=== PATIENT | female | born 1980 | race Caucasian/White ===

== ENCOUNTER 2023-04-19 18:43 | Emergency (ER) | payer BC, SELFPAY ==
[2023-04-19 18:53] VITALS: BP 190/120; PULSE 112; RESP 20; O2SAT 98
[2023-04-19 19:05] VITALS: O2SAT 98
--- NOTE | 2023-04-19 19:09 | XR_ITS ---
The [address] [address] Patient Name: MICHAEL LAUGHLIN MRN: [id number] date: 1980 Sex: F Assigned Patient Location: ER Current Patient Location: ER Accession/Order Number: [id number] Exam Date: 04/19/2023 19:20 Report Date: 04/19/2023 19:48 At the request of: HUI RODRIGUES Procedure: XR chest 1V EXAM: XR chest 1V HISTORY: Cough. COMPARISON: None. TECHNIQUE: 2 AP erect portable views of the chest performed. FINDINGS: The trachea is midline. The heart size is normal. The cardiomediastinal silhouette and hilar shadows are normal. The lung wahl are clear. There is no pneumothorax. There is no osseous abnormality. XR/XR chest 1V IMPRESSION: Unremarkable AP erect portable views of the chest. Electronically authenticated by: EVON PAVON Date: 04/19/2023 19:48
--- NOTE | 2023-04-19 19:10 | ED_ITS ---
Documented by User: ERUM Baldwin 04/19/23 20:01 HPI - URI/Sore Throat General Chief Complaint: Upper Respiratory Infection Stated Complaint: COVID + HOME TEST Time Seen by Provider: 04/19/23 18:55 Source: patient Limitations: no limitations History of Present Illness HPI Narrative: patient is a 42-year-old female presents to the emergency department for the evaluation of flulike illness for the last three days, she took a positive home Covid test today. She states she presents to the Emergency Room because she has history of lupus and has a bad headache, bad cough and does not feel well. She is drinking fluids without difficulty. She has a history of hypertension and states that her blood pressure is typically high when she is evaluated at a doctor's office or hospital. Manual blood pressure was 190/120. She does not complain of chest pain but states she is mildly short of breath when she coughs. No hemoptysis. No concern for . She is not currently on steroids for her lupus. Related Data Home Medications Medication Instructions Recorded Confirmed metoprolol succinate 25 mg 25 mg PO DAILY 04/19/23 04/19/23 tablet,extended release 24 hr Previous Rx's Medication Instructions Recorded albuterol sulfate 90 mcg/actuation 2 inh inhalation Q4H PRN shortness 04/19/23 aerosol inhaler of breath or wheezing #8.5 grams dexamethasone 4 mg tablet 4 mg PO BID 5 days #10 tabs 04/19/23 ondansetron 4 mg disintegrating 4 mg PO Q6H PRN nausea and 04/19/23 tablet vomiting #12 tabs Allergies Allergy/AdvReac Type Severity Reaction Status Date / Time Penicillins Allergy Severe Rash Verified 04/19/23 18:52 Review of Systems ROS Constitutional Reports: chills; Denies: fever Eyes Denies: change in vision Ears, nose, mouth, and throat Reports: throat pain and nasal congestion; Denies: neck pain Cardiovascular Denies: chest pain Respiratory Reports: shortness of breath and cough Gastrointestinal Denies: nausea or vomiting Musculoskeletal Denies: back pain Integumentary/Breast Denies: rash Neurological Reports: headache Psychiatric Reports: anxiety Allergic/Immunologic Denies: hives PFSH PFSH Social History Smoking status: Never smoker Exam Narrative Exam Narrative: Gen.: Awake, alert, in no distress Head: Normocephalic, atraumatic ENT: Moist mucous membranes, no significant pharyngeal erythema or tonsillar edema. Airway widely open and patent. Clear speech. Respiratory: No respiratory distress, lungs clear bilaterally; no wheezing or rhonchi Cardio: Regular rate and rhythm Extremities: Moves extremities equally, no pedal edema Psych: Normal mood and affect Neuro: No focal neuro deficit Skin: Warm, dry, intact Constitutional Vital Signs, click to edit/add: Last Vital Signs Pulse 112 H 04/19/23 18:53 Resp 20 04/19/23 18:53 BP 142/98 H 04/19/23 19:52 Pulse Ox 98 04/19/23 19:27 O2 Del Method Room Air 04/19/23 19:27 Course Vital Signs Vital signs: Vital Signs Pulse Rate 112 H 04/19/23 18:53 Respiratory Rate 20 04/19/23 18:53 Blood Pressure 190/120 H 04/19/23 18:53 Pulse Oximetry 98 04/19/23 18:53 Pulse Rate 112 H 04/19/23 18:53 Respiratory Rate 20 04/19/23 18:53 Blood Pressure 142/98 H 04/19/23 19:52 Pulse Oximetry 98 04/19/23 19:27 Oxygen Delivery Method Room Air 04/19/23 19:27 MDM - URI/Sore Throat MDM Narrative Medical decision making narrative: blood pressure was rechecked manually at 142/98. Patient with no complete chest pain and maintains normal oxygen saturation. Chest x-ray with no evidence of acute cardiopulmonary changes. Patient's symptoms are consistent with Coban infection and she is given for prescription and for home to help with symptoms. She is started on Decadron, Zofran, albuterol inhaler. Follow-up with PCP and return to the Emergency Room if symptoms change or worsen. Medical Records Attestation: I reviewed the patient's medical records. Imaging Data Chest x-ray: Attestation: I have reviewed the pertinent imaging results. Radiologist's impression: Procedure: XR chest 1V EXAM: XR chest 1V HISTORY: Cough. COMPARISON: None. TECHNIQUE: 2 AP erect portable views of the chest performed. FINDINGS: The trachea is midline. The heart size is normal. The cardiomediastinal silhouette and hilar shadows are normal. The lung wahl are clear. There is no pneumothorax. There is no osseous abnormality. IMPRESSION: Unremarkable AP erect portable views of the chest. Electronically authenticated by: EVON PAVON Date: 04/19/2023 19:48 Discharge Plan Discharge Chief Complaint: Upper Respiratory Infection Clinical Impression: COVID-19 Patient Disposition: Home, Self-Care Time of Disposition Decision: 20:00 Condition: Good Prescriptions / Home Meds: New albuterol sulfate 90 mcg/actuation HFA aerosol inhaler 2 inh inhalation Q4H PRN (Reason: shortness of breath or wheezing) Qty: 8.5 0RF dexamethasone 4 mg tablet 4 mg PO BID 5 Days Qty: 10 0RF ondansetron 4 mg tablet,disintegrating 4 mg PO Q6H PRN (Reason: nausea and vomiting) Qty: 12 0RF No Action metoprolol succinate 25 mg tablet extended release 24 hr 25 mg PO DAILY Instructions: COVID-19 (Coronavirus Disease 2019) (ED), How to Recover from COVID-19 at Home (ED) Stand Alone Forms: Portal Instructions Referrals: Gabi Bobby MD [Primary Care Provider] - 1 week Discharge Date/Time: 04/19/23 20:17 Documented by User: Salina Dove MD 04/19/23 23:58 HPI - URI/Sore Throat General Chief Complaint: Upper Respiratory Infection Stated Complaint: COVID + HOME TEST Time Seen by Provider: 04/19/23 18:55 Related Data Home Medications Medication Instructions Recorded Confirmed metoprolol succinate 25 mg 25 mg PO DAILY 04/19/23 04/19/23 tablet,extended release 24 hr Previous Rx's Medication Instructions Recorded albuterol sulfate 90 mcg/actuation 2 inh inhalation Q4H PRN shortness 04/19/23 aerosol inhaler of breath or wheezing #8.5 grams dexamethasone 4 mg tablet 4 mg PO BID 5 days #10 tabs 04/19/23 ondansetron 4 mg disintegrating 4 mg PO Q6H PRN nausea and 04/19/23 tablet vomiting #12 tabs Allergies Allergy/AdvReac Type Severity Reaction Status Date / Time Penicillins Allergy Severe Rash Verified 04/19/23 18:52 PFSH PFSH Social History Smoking status: Never smoker Exam Constitutional Vital Signs, click to edit/add: Last Vital Signs Pulse 112 H 04/19/23 18:53 Resp 20 04/19/23 18:53 BP 142/98 H 04/19/23 19:52 Pulse Ox 98 04/19/23 19:27 O2 Del Method Room Air 04/19/23 19:27 Course Vital Signs Vital signs: Vital Signs Pulse Rate 112 H 04/19/23 18:53 Respiratory Rate 20 04/19/23 18:53 Blood Pressure 190/120 H 04/19/23 18:53 Pulse Oximetry 98 04/19/23 18:53 Pulse Rate 112 H 04/19/23 18:53 Respiratory Rate 20 04/19/23 18:53 Blood Pressure 142/98 H 04/19/23 19:52 Pulse Oximetry 98 04/19/23 19:27 Oxygen Delivery Method Room Air 04/19/23 19:27 MDM - URI/Sore Throat MDM Narrative Medical decision making narrative: blood pressure was rechecked manually at 142/98. Patient with no complete chest pain and maintains normal oxygen saturation. Chest x-ray with no evidence of acute cardiopulmonary changes. Patient's symptoms are consistent with Coban infection and she is given for prescription and for home to help with symptoms. She is started on Decadron, Zofran, albuterol inhaler. Follow-up with PCP and return to the Emergency Room if symptoms change or worsen. Attending physician attestation I have reviewed the mid-level documentation, agree with the documentation, medical decision making and treatment plan as outlined by the mid-level provider. Discharge Plan Discharge Chief Complaint: Upper Respiratory Infection Clinical Impression: COVID-19 Patient Disposition: Home, Self-Care Time of Disposition Decision: 20:00 Condition: Good Prescriptions / Home Meds: New albuterol sulfate 90 mcg/actuation HFA aerosol inhaler 2 inh inhalation Q4H PRN (Reason: shortness of breath or wheezing) Qty: 8.5 0RF dexamethasone 4 mg tablet 4 mg PO BID 5 Days Qty: 10 0RF ondansetron 4 mg tablet,disintegrating 4 mg PO Q6H PRN (Reason: nausea and vomiting) Qty: 12 0RF No Action metoprolol succinate 25 mg tablet extended release 24 hr 25 mg PO DAILY Instructions: COVID-19 (Coronavirus Disease 2019) (ED), How to Recover from [place] VID-19 at Home (ED) Stand Alone Forms: Portal Instructions Referrals: Gabi Bobby MD [Primary Care Provider] - 1 week Discharge Date/Time: 04/19/23 20:17
[2023-04-19 19:27] VITALS: O2SAT 98
[2023-04-19] MEDS: DEXAMETHASONE SODIUM PHOSPHATE 10 MG/ML VIAL PO (19:27)
[2023-04-19 19:52] VITALS: BP 142/98
== END 2023-04-19 20:17 | disposition home or self-care (01) ==
PROVIDERS: Emergency Provider Emergency Medicine; PCP Family Medicine
DX: U07.1 COVID-19 (principal); Z79.899 Other long term (current) drug therapy
CPT/HCPCS: 71045; 99283; J1100

== ENCOUNTER 2023-08-05 12:30 | Outpatient (OUT) | payer BC, SELFPAY ==
[2023-08-05 12:52] LABS: Basophils Absolute Auto 0.1 10^3/uL (0.0-0.1); Basophils Percent Auto 1.2 % (0.2-2.0); Eosinophils Absolute Auto 0.2 10^3/uL (0.0-0.7); Hematocrit 46.1 % (36.0-48.0); Hemoglobin 15.5 g/dL (12.0-16.0); Immature Granulocytes Abs Auto 0.03 10^3/uL (0.00-0.03); Immature Granulocytes Pct Auto 0.4 % (0.0-0.5); Lymphocytes Absolute Auto 1.7 10^3/uL (1.2-3.8); Mean Corpuscular HGB Conc 33.6 g/dL (29.9-35.2); Mean Corpuscular Hemoglobin 31.8 pg (26.7-34.0); Mean Corpuscular Volume 94.5 fL (81.0-99.0); Mean Platelet Volume 9.9 fL (9.5-13.5); Monocytes Absolute Auto 0.8 10^3/uL (0.3-0.8); Monocytes Percent Auto 11.1 % (1.7-12.0); Neutrophils Absolute Auto 4.6 10^3/uL (1.4-6.5); Neutrophils Percent Auto 62.3 % (43.0-75.0); Platelet Count 310 10^3/uL (150-450); Red Blood Count 4.88 10^6/uL (4.20-5.40); Red Cell Distribution Width 12.3 % (11.0-15.0); White Blood Count 7.4 10^3/uL (4.0-11.0)
[2023-08-05 13:33] LABS: Anion Gap 11.1; BUN Creatinine Ratio 10.1; Calcium 8.8 mg/dL (8.5-10.1); Carbon Dioxide 30.3 mmol/L (21.0-32.0); Chloride 100 mmol/L (98-107); Estimated GFR (African America >60 (>=60); Estimated GFR (Non-African Ame 55 (>=60); Glucose 90 mg/dL (74-106); Potassium 3.4 mmol/L (3.5-5.1); Sodium 138 mmol/L (136-145); Thyroid Stimulating Hormone 5.615 uIU/mL (0.358-3.740)
[2023-08-05 14:13] LABS: Free T4 0.92 ng/dL (0.76-1.46)
== END 2023-08-05 12:31 | disposition home or self-care (01) ==
PROVIDERS: PCP Family Medicine; Visit Provider Family Medicine
DX: R00.0 Tachycardia, unspecified (principal); I10 Essential (primary) hypertension; E03.9 Hypothyroidism, unspecified
CPT/HCPCS: 36415; 80048; 84439; 84443; 85025

== ENCOUNTER 2024-01-27 12:37 | Outpatient (OUT) | payer SELFPAY ==
[2024-01-27 13:03] LABS: Basophils Absolute Auto 0.1 10^3/uL (0.0-0.1); Basophils Percent Auto 1.2 % (0.2-2.0); Eosinophils Absolute Auto 0.2 10^3/uL (0.0-0.7); Eosinophils Percent Auto 2.6 % (0.9-7.0); Hematocrit 43.6 % (36.0-48.0); Hemoglobin 14.7 g/dL (12.0-16.0); Immature Granulocytes Abs Auto 0.03 10^3/uL (0.00-0.03); Immature Granulocytes Pct Auto 0.4 % (0.0-0.5); Lymphocytes Absolute Auto 1.7 10^3/uL (1.2-3.8); Lymphocytes Percent Auto 22.5 % (20.5-60.0); Mean Corpuscular HGB Conc 33.7 g/dL (29.9-35.2); Mean Corpuscular Hemoglobin 30.9 pg (26.7-34.0); Mean Corpuscular Volume 91.8 fL (81.0-99.0); Mean Platelet Volume 9.8 fL (9.5-13.5); Monocytes Absolute Auto 0.6 10^3/uL (0.3-0.8); Monocytes Percent Auto 7.8 % (1.7-12.0); Neutrophils Percent Auto 65.5 % (43.0-75.0); Platelet Count 321 10^3/uL (150-450); Red Blood Count 4.75 10^6/uL (4.20-5.40); Red Cell Distribution Width 12.5 % (11.0-15.0); White Blood Count 7.7 10^3/uL (4.0-11.0)
[2024-01-27 13:58] LABS: Free T4 0.71 ng/dL (0.76-1.46)
[2024-01-27 14:02] LABS: Anion Gap 13.6; BUN Creatinine Ratio 7.9; Calcium 8.6 mg/dL (8.5-10.1); Chloride 102 mmol/L (98-107); Estimated GFR (African America >60 (>=60); Estimated GFR (Non-African Ame >60 (>=60); Glucose 144 mg/dL (74-106); Potassium 3.6 mmol/L (3.5-5.1); Sodium 138 mmol/L (136-145); Thyroid Stimulating Hormone 7.466 uIU/mL (0.358-3.740)
== END 2024-01-27 12:38 | disposition home or self-care (01) ==
LOC: LAB 12:39
PROVIDERS: PCP Family Medicine; Visit Provider Family Medicine
DX: R00.0 Tachycardia, unspecified (principal); I10 Essential (primary) hypertension; E03.9 Hypothyroidism, unspecified
CPT/HCPCS: 36415; 80048; 84439; 84443; 85025

== ENCOUNTER 2024-12-26 10:33 | Outpatient (OUT) | payer BC, SELFPAY ==
[2024-12-26 11:34] LABS: Free T4 0.76 ng/dL (0.76-1.46)
[2024-12-26 11:37] LABS: Anion Gap 11.3; Calcium 8.5 mg/dL (8.5-10.1); Chloride 103 mmol/L (98-107); Estimated GFR (African America >60 (>=60 mL/min/1.73m^2); Estimated GFR (Non-African Ame >60 (>=60 mL/min/1.73m^2); Glucose 98 mg/dL (74-106); Potassium 4.3 mmol/L (3.5-5.1); Sodium 138 mmol/L (136-145); Thyroid Stimulating Hormone 9.741 uIU/mL (0.358-3.740)
== END 2024-12-26 10:34 | disposition home or self-care (01) ==
LOC: LAB 10:36
PROVIDERS: PCP Family Medicine; Visit Provider Family Medicine
DX: E03.9 Hypothyroidism, unspecified (principal); I10 Essential (primary) hypertension
CPT/HCPCS: 36415; 80048; 84439; 84443

== ENCOUNTER 2025-07-08 11:25 | Outpatient (OUT) | payer BC, SELFPAY ==
--- OUTSIDE RECORDS SUMMARY | 2025-06-26 06:52 | XMS_ITS | Continuity of Care Document ---
Author Organization [facility] Address [address] [place] [address] Phone Care Team Providers Care Fluxer Name Role Phone Gabi Bobby MD Primary Care Provider Gabi Bobby MD Attending Provider [phone] Care Teams Patient Care Team Team Status: Active Member Role/Relationship Status Dates Gabi Bobby MD Primary Care Provider Active Patient Care Team Team Status: Inactive Member Role/Relationship Status Dates Gabi Bobby MD Primary Care Provider Active Start: June 26, 2025 End: June 26, 2025Gabi Bobby MDAttending ProviderActiveStart: June 26, 2025 End: June 26, 2025 Chief Complaint and Reason for Visit Chief Complaint Admit Date discuss multiple concerns + refill meds June 26, 2025 11:22am Reason for Visit Admit Date Acquired hypothyroidism June 26 11:22am Allergies, Adverse Reactions, Alerts Allergen Type Severity Reaction Last Updated Verified Status penicillin G Allergy Unknown Hives June 26, 2025 11:25am Yes Active Penicillins Allergy Unknown Hives June 26, 2025 11:25am Y es Active venlafaxine Allergy Unknown Hives June 26, 2025 11:25am Y es Active Social History Smoking Status Status Start Date End Date Date of Observa tion Never smoked tobacco (finding) December 20, 2024 11:13am Observation Status Observation Response Date of Response Legal Sex Female (finding) [facility] 1979 Family History Relationship Condition Age at Onset Recorded Date/T deyanira father Unknown Problems Active Problems Problem Diagnosis/Recorded Date Onset Date Stat us Colon cancer screening December 20, 2024 10:43am Unknown Active Screening mammogram for breast cancer December 20, 2024 10 :41am Unknown Active Acquired hypothyroidism December 26, 2023 11:26am Unknown Active Adult ADHD November 02, 2023 7:38am Unknown Acti ve Wellness examination February 13, 2024 1:14pm Unknown Active Headache November 16, 2023 7:51am Unknown Acti ve Tachycardia December 28, 2023 10:19am Unknown Active Essential (primary) hypertension December 26, 2023 11:26am Unknown Active Medications Medication Status Dose Units Route Directions Qty Days Refills S tart Date Stop Date End Date Reason(s) Instructions Adherence Butalbital-Acetaminophen 50-325 mg tablet Discontinued 1 TAB PO Twice daily as needed for pain 30 30 0 November 16, 2023 7:50am December 22, 2023 11:59amHeadache Headache, unspecifiedDextroamphetamine-Amphetamine (Adderall Xr) 30 mg capsule,extended release 01zoJdkrwswhippt90TEPCDlxks83331Koekv 2023May 2023 7:40amAttention deficit disorder of adult with hyperactivity Attention-deficit hyperactivity disorder, unspecified typeButalbital- Acetaminophen 50-325 mg utxteiOetqxyakvphy3LGUHNExoxf daily as needed for pain30 300May 2023 11:59amJune 2023 7:59amHeadache Headache, unspecifiedDextroamphetamine-Amphetamine (Adderall Xr) 30 mg capsule,extended release 31lcWcjilhdrsgty25QJASOgfll17326Aic 2023June 2023 8:09amAttention deficit disorder of adult with hyperactivity Attention-deficit hyperactivity disorder, unspecified typeDextroamphetamine- Amphetamine (Adderall Xr) 30 mg capsule,extended release 54uqSpjcdmgdqjdx71CJNO Nzyzv222Qqtm 2023June 2023 10:32amAttention deficit disorder of adult with hyperactivity Attention-deficit hyperactivity disorder, unspecified typeButalbital- Acetaminophen 50-325 mg ezdcbbOuibqigxidao0AQDXZHtbyp daily as needed for pain30 300June 2023 7:59amJuly 2023 7:27amHeadache Headache, unspecifiedDextroamphetamine-Amphetamine (Adderall Xr) 30 mg capsule,extended release 87jkCasqimwjazyt46LRSRFdbxd32605Hsgd ugu2023 8:51amAttention deficit disorder of adult with hyperactivity Attention-deficit hyperactivity disorder, unspecified typeButalbital- Acetaminophen 50-325 mg qctjfsLonjaiuozkol8AJHTGAjgsz daily as needed for pain30 300July 2023 7:27amAugust 2023 6:55amHeadache Headache, unspecifiedDextroamphetamine-Amphetamine (Adderall Xr) 30 mg capsule,extended release 35ygWlaszpawixls90XOMTMexqc19875Uymjky 2023April 27, 2024 7:22amAttention deficit disorder of adult with hyperactivity Attention-deficit hyperactivity disorder, unspecified typeLevothyroxine 88 mcg ggfcfbGtnfcpsevxcq15SJGOHIlctp145Kvjxvo 2023 7:31amDecember 2023 9:36amButalbital-Acetaminophen 50-325 mg rsmiwqYkajantxmvvk9LRKWAQvryx daily as needed for hdhl99196Ldeaia 2023 6:55amSeptember 2023 7:23amHeadache Headache, unspecifiedDextroamphetamine-Amphetamine (Adderall Xr) 30 mg capsule,extended release 24aiHrvbaarzvuye89WCUQEyarc32754Fsasalduh 2023May 30, 2024 9:43amAttention deficit disorder of adult with hyperactivity Attention-deficit hyperactivity disorder, unspecified typeButalbital- Acetaminophen 50-325 mg fpmbtaSbkjsnujccwr4GUKPHQygrl daily as needed for pain30 300September 2023 7:23amOctober 2023 7:11pmHeadache Headache, unspecifiedDextroamphetamine-Amphetamine (Adderall Xr) 30 mg capsule,extended release 18xtWeuiajosbuyl63CRYJHqzdv96859Eszysgt 2023June 28, 2024 1:13pmAttention deficit disorder of adult with hyperactivity Attention-deficit hyperactivity disorder, unspecified typeSumatriptan Succinate 50 mg iiydsaNvbjmdruwaae5KF.CLCJXRB76Mxrmall 2023 11:00pmJanuary 2024 1:09pmtake 1 tab at onset of headache; if no relief may repeat 1 tab after at least 2 hrs; max = 4 tabs/24 hr PODuloxetine 30 mg capsule,delayed release(DR/EC)Qwnyrkucitkr43SAWUTbtrd907Odcvswb 2023 3:15pmMay 2024 8:14amDextroamphetamine-Amphetamine (Adderall Xr) 30 mg capsule,extended release 33pnKsiuzzplukkd79VDZPKqlkn41205Dvvxkvvu 7th, 2024November 2023 1:14pm Attention deficit disorder of adult with hyperactivity Attention-deficit hyperactivity disorder, unspecified typeDextroamphetamine- Amphetamine (Adderall Xr) 30 mg capsule,extended release 78esYqwpnkttosqf47AINN Nfpfh01389Cidqueag eceer 2023 8:35amAttention deficit disorder of adult with hyperactivity Attention-deficit hyperactivity disorder, unspecified typeDextroamphetamine- Amphetamine (Adderall Xr) 30 mg capsule,extended release 76utSgfjonywjnse23WMVM Eeqth56358Mrksyxxf 2023January 2024 1:10pmAttention deficit disorder of adult with hyperactivity Attention-deficit hyperactivity disorder, unspecified typeLevothyroxine 88 mcg lrqlpkBbcnuducopqk58PXDNGQhxau776Wmxvqzmx 2023 9:36amMay 2024 8:14am Sumatriptan Succinate 50 mg oeexupCetphbfptacj3VY.SNSLGMS07Jiijgyy 2024 1:09pmMay 2024 8:14amtake 1 tab at onset of headache; if no relief may repeat 1 tab after at least 2 hrs; max = 4 tabs/24 hr PODextroamphetamine- Amphetamine (Adderall Xr) 30 mg capsule,extended release 17byTmkcpnyreqog95LGPU Edlur97249Huaicjs 2024 8:14amAttention deficit disorder of adult with hyperactivity Attention-deficit hyperactivity disorder, unspecified typeAmlodipine 5 mg tablet Fdzxskrheskb9EVWJKjkit258Qndeypv 2024 3:36pmFebruary 2024 8:30am FreeTextSig: take 1 tablet by mouth once daily; Note: Source Status: Start; Refills: 1; Qty: 30 Tablet; Provider: Kanu Ashley ( )Amlodipine 5 mg zxlmwfDgaedxnholeq7SAVNJimtd467Fjzhapve 2024 8:30amMay 2024 8:14amFreeTextSig: take 1 tablet by mouth once daily; Note: Source Status: Start; Refills: 1; Qty: 30 Tablet; Provider: Kanu Ashley ( ) Levothyroxine 100 mcg dmxmqqIylquq323BFGWOJetej023Rhu 2024 11:16amComplies with drug therapyLevothyroxine 75 mcg craebzYeshoolrcogo68LTELMNmcdm758Xkwb 2023 10:25amAugust 2023 7:32amFreeTextSi tablet in the morning on an empty stomach Orally Once a day; Note: Source Status: Start; Refills: 1; Provider: Kanu Ashley EDuloxetine 30 mg capsule,delayed release(DR/EC) Rsacotpursyc51KFCIGiueh350Ypyd 2023 10:26amOctober 2023 3:15pm FreeTextSig: take 1 capsule by mouth once daily; Note: Source Status: Start; Refills: 0; Qty: 30 Capsule; Provider: Kanu Ashley ( ) Dextroamphetamine-Amphetamine (Adderall Xr) 30 mg capsule,extended release 24hr Ffjlfjruztnk74XPRDZtdvn71366Izqz 2023July 2023 7:26amAttention deficit disorder of adult with hyperactivity Attention-deficit hyperactivity disorder, unspecified typeDuloxetine 30 mg capsule,delayed release(DR/EC)Bocbhr91IAHECptkt321Dyvwwgyn 2024 11:45am Complies with drug therapyDextroamphetamine-Amphetamine (Adderall Xr) 30 mg capsule,extended release 58qcBmwcmyjicerf57BRFPAffli4Oznlv 2023 11:00pm November 02, 2023 7:38amDextroamphetamine-Amphetamine (Adderall Xr) 30 mg capsule,extended release 21ljLdkpvlzzuplg67NHXLGuwal37419Zwuvn pril 2023 8:58amAttention deficit disorder of adult with hyperactivity Attention-deficit hyperactivity disorder, unspecified typeButalbital- Acetaminophen 50-325 mg incliyDpyvxeywbnga4QUWYJPosnt 6 hours as neededMarch 2023 11:00pmMarch 2023 7:52amDuloxetine 20 mg capsule,delayed release(DR/EC)Btkdvelaixym42TZRYYjxxuKwp 2023 11:00pmJune 2023 10:26amFreeTextSig: take 1 capsule by mouth once daily; Note: Source Status: Start; Refills: 0; Qty: 30 Capsule; Provider: Kanu Ashley ( ) Amlodipine 5 mg qeprqoKyepmgwacacz9MRXIIBryqzHqb 2023 11:00pmJanuary 2024 3:37pmFreeTextSig: take 1 tablet by mouth once daily; Note: Source Status: Start; Refills: 1; Qty: 30 Tablet; Provider: Kanu Ashley ( ) Levothyroxine 50 mcg pexpzsMfxhupbfaffh3ELEAIJysosPzt 2023 11:00pmJune 2023 10:25amFreeTextSi tablet in the morning on an empty stomach Orally Once a day; Note: Source Status: Start; Refills: 1; Provider: Kanu Ashley EAmlodipine 5 mg abyphzBrzhrrszcxbf4QZQRJweypEmwez 2024 11:00pmMay 2024 10:37amDextroamphetamine-Amphetamine 30 mg capsule,extended release 48sqNvpwapplvhck67FGFRFgzgj6Fkife 2024 11:00pmMay 2024 10:38am Duloxetine 30 mg capsule,delayed release(DR/EC)Ydmessiswqsb02EVSWAqonmKijxu 2024 11:00pmMay 2024 10:39amLevothyroxine 88 mcg zjkjavOmmzqghjxcmh71 MCGPODailyApril 2024 11:00pmMay 2024 11:16amSumatriptan Succinate 50 mg kndyjoMluuzoryilpv15DOKUGQLXX 2-4 HOURS as neededApril 2024 11:00pmMa2024 10:38amdo not exceed 4 doses per 24 hrsAmlodipine 5 mg tablet Znyrlmruttfe4GQPDZakne019Kud 2024 10:35amNovember 2024 11:42am Metoprolol Succinate 25 mg tablet extended release 24 ssLytecnmfojqq68OBJPXbynf 300April 2024 11:00pmJune 26, 2025 11:42am Vital Signs Vital Reading Result Reference Range Collection Date/Time Height 65 [in_i] June 26, 2025 11:20hkNbnzfq83.86 kgJune 26, 2025 11:22amHeart Rjit665 /yzh28-484ZqzsvslvJune 26, 2025 11:32amBP Cdryfqqj208 mm[Hg]100-140June 26, 2025 11:32amBP Ojxsktkhu367 mm[Hg]60-100June 26, 2025 11:32amBMI (Body Mass Index)23.8 kg/g4FwmjcqvmJune 26, 2025 11:22am Advance Directives Advance Directive Response Recorded Date/ Time Advance Directives No January 25 10:08am Insurance Providers Guarantor Bri Perkins Address [address] [place] [phone] Info.Home Phone: C Coverage Status Update:2024 Payer Group Member ID Coverage Type Subscriber Relationship to Subscriber Effective Date Expiration Date Parmjit SILVA [id number] Smith , M Id: [id number] [address] [place] [id number] Home Phone: C Email: [email or web address] [employer] [id number] Smith , M Id: [id number] [address] [place] [phone] Home Phone: C Email: [email or web address] Encounter Location(s) Arrival/Admit Date Discharge/Departure Date Discharge/Departure Disposition Provider(s) Departed Physician/ Provider Office Visit -[facility] June 26, 2025 11:22am June 26, 2025 11:50am Discharged to home care or self care (routine discharge) Gabi Bobby MD Recent Diagnosis Onset Date Admit Date Acquired hypothyroidism Unknown June 26, 2025 11:22am Assessments Diagnosis Onset Date Resolution Status Admit Date Acquired hypothyroidism acuteJune 26, 2025 11:22am Plan of Treatment Future Tests Future scheduled test information is unavailable Pending Tests Pending diagnostic test information is unavailable Future Visits Future appointment information is unavailable Future Procedures Procedure Name Ordered Date Scheduled Date Free T4 (Free Thyroxine) June 26, 2025 11:4 3am Thyroid Stim Hormone w/RflxJunember 2024 11:43am Future Medications Future medication information is unavailable Patient Instructions Patient instructions are unavailable
--- OUTSIDE RECORDS SUMMARY | 2025-07-08 11:35 | XMS_ITS | CCD ---
Author Organization 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 Name Role Phone GABI BOBBY Unavailable Unavailable GABI BOBBY Unavailable Unavailable GABI BOBBY Unavailable Unavailable GABI BOBBY Unavailable Unavailable HAY, GEMA Unavailable Unavailable HAY, GEMA Unavailable Unavailable RAJESH XAVIER Unavailable Unavailable HUI RODRIGUES Unavailable Unavailable Gabi Bobby Unavailable Gabi Bobby MD Primary Care Provider [phone] Gabi Bobby MD Attending Provider Allergies Allergy ClassificationReported Allergen(s)Allergy TypeDate of OnsetReaction(s) Facility (4 sources)PenicillinsDrug allergy (disorder)[phone] (9 sources)Penicillin GDrug [phone] State [facility] System (9 sources)venlafaxineDrug Singmqj65-44-5743HgiimyzOhio State Health System (6 sources)venlafaxineDrug Ybcmywb91-47-5182AfwoahlVmgzg [place] [employer] [place] Other (6 sources)Substance with penicillin structure and antibacterial mechanism of action (substance)Drug allergyLandmark Medical Center [employer] [place] Other Medications Current Medications MedicationDrug Class(es)DatesSig (Normalized)Sig (Original)acetaminophen 325 mg / butalbital 50 mg / caffeine 40 mg oral capsule (6 sources)Barbiturate, Central Nervous System Stimulant, Methylxanthinetake 1 capsule by mouth every four aghljRhutccbygc-NXFO-Bcuqzect 50-325-40 MG 1 capsule as needed Orally every 4 hrs for 30 days Nyhejzcshllrwovu-jhmprdddrwalh-vsrt 50-325-40mg (1 source)Start: 87-91-4775kpkj 1 tablet by mouth every six hours as needed dkidnhrxal-kilnzefoyquak-suml 50-325-40mg bbjcotbvoq-tsdlullftypws-iqou 50-325-40mg, 1 (one) Tabletevery six hours, as needed # 30, 07/27/2022, Ref. x2. Active oral every six hours, as needed for 0 *Reorder from [facility] for eRx and Interaction Alerts* Jul, ActiveDULoxetine 30 mg delayed release oral capsule (17 sources)Serotonin and Norepinephrine Reuptake InhibitorStart: 77-81-0599oicm 1 capsule by mouth once dailyDuloxetine 30 mg capsule,delayed release(DR/EC) Active 30 MG PO Daily 90 0 June 26, 2025 11:45am Complies with drug therapy Start: 02-01-2024 End: 80-39-7118ilxt 1 capsule by mouth once dailyDuloxetine 30 mg capsule,delayed release(DR/EC) Discontinued 30 MG PO Daily December 19, 2024 11:00pm December 20, 2024 10:39amStart: 12-26-2023 End: 05-36-3160ljst 1 capsule by mouth once dailyDuloxetine 20 mg capsule,delayed release(DR/EC) Discontinued 20 MG PO Daily December 25, 2023 11:00pm February 01, 2024 10:26am FreeTextSig: take 1 capsule by mouth once daily; Note: Source Status: Start; Refills: 0; Qty: 30 Capsule; Provider: Kanu Ashley ( )take 1 capsule by mouth once dailyDULoxetine HCl 20 MG take 1 capsule by mouth once daily for 30 Activelevothyroxine sodium 0.1 mg oral tablet (18 sources)l-ThyroxineStart: 42-67-3137qnfc 1 tablet by mouth once daily Levothyroxine 100 mcg tablet Active 100 MCG PO Daily 90 0 December 26, 2024 11:16am Complies with drug therapyStart: 03-30-2024 End: 17-05-2007zuhr 1 tablet by mouth once dailyLevothyroxine 88 mcg tablet Discontinued 88 MCG PO Daily December 19, 2024 11:00pm December 26, 2024 11:16am Start: 02-01-2024 End: 79-83-5863sfyz 1 tablet by mouth once daily in the morningLevothyroxine 75 mcg tablet Discontinued 75 MCG PO Daily 90 0 February 01, 2024 10:25am March 30, 2024 7:32am FreeTextSi tablet in the morning on an empty stomach Orally Once a day; Note: Source Status: Start; Refills: 1; Provider: Kanu Ashley EStart: 12-26-2023 End: 88-45-4193uqcp 1 tablet by mouth once daily in the morningLevothyroxine 50 mcg tablet Discontinued 1 TAB PO Daily December 25, 2023 11:00pm February 01, 2024 10:25am FreeTextSi tablet in the morning on an empty stomach Orally Once a day; Note: Source Status: Start; Refills: 1; Provider: Kanu Valentine 1 tablet by mouth once daily in the morningLevothyroxine Sodium 50 MCG 1 tablet in the morning on an empty stomach Orally Once a day for 30 days Active Completed/Discontinued Medications MedicationDrug Class(es)DatesSig (Normalized)Sig (Original)acetaminophen 325 mg / butalbital 50 mg oral tablet (20 sources)BarbiturateStart: 11-16-2023 End: 39-10-7592jhmk 1 tablet by mouth twice daily as needed for painButalbital- Acetaminophen 50-325 mg tablet Discontinued 1 TAB PO Twice daily as needed for pain 30 30 0 May 11, 2024 7:23am June 15, 2024 7:11pm Headache Headache, unspecifiedStart: 11-15-2023 End: 57-02-5401ccpx 1 tablet by mouth every six hours as neededButalbital- Acetaminophen 50-325 mg tablet Discontinued 1 TAB PO Every 6 hours as needed October 11:00pm November 16, 2023 7:52amButalbital-Acetaminophen 50-325 MG take 1 tablet by mouth every 6 hours if needed for 7 days for 7 Active amLODIPine 5 mg oral tablet (17 sources)Dihydropyridine Calcium Channel BlockerStart: 12-26-2023 End: 10-70-0521bfmb 1 tablet by mouth once dailyAmlodipine 5 mg tablet Discontinued 5 MG PO Daily 30 3 December 20, 2024 10:35am June 26, 2025 11:42am Start: 81-33-6453insk 1 tablet by mouth every twenty-four hoursamLODIPine Besylate 5 MG 1 tablet Orally Once a day for 30 day(s) Jul, Uyhlta48 hr amphetamine aspartate 7.5 mg / amphetamine sulfate 7.5 mg / dextroamphetamine saccharate 7.5 mg / dextroamphetamine sulfate 7.5 mg extended release oral capsule (20 sources)Central Nervous System StimulantStart: 06-30-2024 End: 32-34-2036xqlc 1 capsule by mouth once dailyDextroamphetamine-Amphetamine 30 mg capsule,extended release 24hr Discontinued 30 MG PO Daily 0 December 19, 2024 11:00pm December 20, 2024 10:38amStart: 06-28-2024 End: 99-89-9226ktiv 1 capsule by mouth once daily, then take 1 capsule by mouth every twenty-four hoursDextroamphetamine-Amphetamine (Adderall Xr) 30 mg capsule,extended release 24hr Discontinued 30 MG PO Daily 30 30 0 June 28, 2024 June 28, 2024 1:14pm Attention deficit disorder of adult with hyperactivity Attention-deficit hyperactivity disorder, unspecified typeStart: 06-28-2024 End: 11-54-3163cuqw 1 capsule by mouth once daily, then take 1 capsule by mouth every twenty-four hoursDextroamphetamine-Amphetamine (Adderall Xr) 30 mg capsule,extended release 24hr Discontinued 30 MG PO Daily 30 30 June 28, 2023June 28, 2024 2:14pmStart: 11-01-2023 End: 80-33-6861gvvm 1 capsule by mouth once daily, then take 1 capsule by mouth every twenty-four hoursDextroamphetamine-Amphetamine (Adderall Xr) 30 mg capsule,extended release 24hr Discontinued 30 MG PO Daily 30 30 0 November 02, 2023 November 30, 2023 8:58am Attention deficit disorder of adult with hy peractivity Attention-deficit hyperactivity disorder, unspecified typeStart: 34-53-8216unuh 1 capsule by mouth every twenty-four hoursAdderall XR 30 MG 1 capsule Orally Once a day for 30 days Sep, ActiveStart: 77-41-0473aceb 1 capsule by mouth every twenty-four hoursAdderall XR 30 MG 1 capsule Orally Once a day for 30 days Aug, ActiveStart: 83-30-1639mgzh 1 capsule by mouth every twenty-four hoursAdderall XR 30 MG 1 capsule Orally Once a day for 30 days Jul, ActiveStart: 26-21-2154xsdh 1 capsule by mouth every twenty-four hoursAdderall XR 30 MG 1 capsule Orally Once a day for 30 days Jun, Activeazithromycin 250 mg oral tablet (12 sources)Macrolide AntimicrobialStart: 95-06-9767Kiiavrocwpee 250 MG 2 tablets on the first day, then 1 tablet daily for 4 days Orally Once a day for 5 day(s) Feb, Not-Taking/PRN24 hr metoprolol succinate 25 mg extended release oral tablet (2 sources)beta-Adrenergic BlockerStart: 12-20-2024 End: 67-43-4290vljk 1 tablet by mouth once dailyMetoprolol Succinate 25 mg tablet extended release 24 hr Discontinued 25 MG PO Daily 30 0 December 19, 2024 11:00pm June 26, 2025 11:42amSUMAtriptan 50 mg oral tablet (6 sources)Serotonin-1b and Serotonin-1d Receptor AgonistStart: 12-20-2024 End: 53-63-0541govw 4 tablets by mouth every twenty-four hours as needed Sumatriptan Succinate 50 mg tablet Discontinued 50 MG PO EVERY 2-4 HOURS as needed December 191:00pm December 20, 2024 10:38am do not exceed 4 doses per 24 hrsStart: 06-15-2024 End: 28-75-0182tqkx 1 tablet by mouth every two hoursSumatriptan Succinate 50 mg tablet Discontinued 0 PO .COMPLEX 9 0 August 31, 2024 1:09pm December 20, 2024 8:14am take 1 tab at onset of headache; if no relief may repeat 1 tab after at least 2 hrs; max = 4 tabs/24 hr PO Problems Active Problems Problem ClassificationProblemDateDocumented DateEpisodic/ChronicAnxiety disorders (7 sources)Generalized anxiety disorder; Translations: [Generalized anxiety disorder]ChronicAttention-deficit, conduct, and disruptive behavior disorders (9 sources)Adult attention deficit hyperactivity disorder ; Translations: [Attention-deficit hyperactivity disorder, unspecified type]23-71-0146Bghidoz Attention-deficit, conduct, and disruptive behavior disorders (2 sources)Attention-deficit hyperactivity disorder, unspecified typeChronic Cardiac dysrhythmias (4 sources)Tachycardia, unspecified; Translations: [Tachycardia]Episodic Complications of surgical procedures or medical care (1 source)Asymptomatic postprocedural ovarian failure; Translations: [ASYMPTOMATIC POSTPROC OVARIAN FAIL]Onset: 27-50-3946RdopoicXoafyyogj hypertension (12 sources)Essential (primary) hypertension; Translations: [Essential hypertension]Onset: 55-10-9178GpnrvyhMyxdzcfe; including migraine (7 sources)Tension-type headache; Translations: [Tension-type headache, unspecified, not intractable]ChronicHeadache; including migraine (3 sources)Headache; Translations: [Headache]59-69-6321QubkbnnvBcvre screening for suspected conditions (not mental disorders or infectious disease) (6 sources)Patient encounter status; Translations: [Encounter for screening for malignant neoplasm of colon]12-58-3633MiribikyNastnkcrrnh; intervertebral disc disorders; other back problems (4 sources)Cervicalgia; Translations: [CERVICALGIA]Onset: 03-08-0656Zzttkewm Thyroid disorders (12 sources)Acquired hypothyroidism; Translations: [Hypothyroidism, unspecified] ChronicUnclassified (2 sources)Acquired absence of both cervix and uterus; Translations: [Acquired absence of other specified parts of digestive tract]Onset: 80-70-0640Oiaswjdz Past or Other Problems Problem ClassificationProblemDateDocumented DateEpisodic/ChronicThyroid disorders (4 sources)Disorder of thyroid, unspecified; Translations: [DISORDER OF THYROID UNSPECIFIED]Onset: 44-69-2105Uinyqwxe Results Test NameValueInterpretationReference RangeFacilityBasophils Auto (Bld) [#/Vol] on 89-34-6685Agatobikm (Bld) [#/Vol]0.1 10 3/uL0.0-0.1FElyria Memorial HospitalBasophils/100 WBC Auto (Bld)on 54-38-7258Tcpqzqsdm/100 WBC (Bld)1.2 % 0.2-2.0[facility] CenterEosinophils/100 WBC Auto (Bld)on 32-72-0985Tdzebfmvsiv/100 WBC (Bld)2.6 %0.9-7.0[facility] Erythrocyte distribution width Auto (RBC) [Ratio]on 62-24-1345Qpnlinidneq distribution width (RBC) [Ratio]12.5 %11.0-15.0[facility] Estimated glomerular filtration rate (GFR) non- Americanon 01-27-2024 GFR/1.73 sq M.predicted among non-blacks MDRD (S/P/Bld) [Vol rate/Area] mL/min/{1.73_m2}>=60[facility] CenterHematocrit Auto (Bld) [Volume fraction]on 09-83-0830Odwmbovkjr (Bld) [Volume fraction]43.6 %36.0-48.0 [facility] CenterHemoglobin [Mass/volume] in Bloodon 01-27-2024 Hemoglobin (Bld) [Mass/Vol]14.7 g/dL12.0-16.0[facility] Laboratory - Chemistry and Chemistry - challengeon 70-01-9362Itbiicu [Mass/Vol] 8.6 mg/dL8.5-10.1FElyria Memorial HospitalChloride [Moles/Vol]102 mmol/L 98-107[facility] CenterCO2 [Moles/Vol]26.0 mmol/L21.0-32.0 [facility] CenterCreatinine [Mass/Vol]0.89 mg/dL0.55-1.02 [facility] CenterFree T4 [Mass/Vol]0.71 ng/dL0.76-1.46[facility] CenterGFR/1.73 sq M.predicted MDRD (S/P/Bld) [Vol rate/Area] mL/min/{1.73_m2}>=60[facility] CenterGlucose [Mass/Vol]144 mg/dL 74-106[facility] CenterPotassium [Moles/Vol]3.6 mmol/L3.5-5.1 [facility] Hospitalodium [Moles/Vol]138 mmol/K152-139EgriktaddTrinity Health System [facility] Medical CenterTSH Qn7.466 m[IU]/L0.358-3.740[facility] CenterUrea nitrogen [Mass/Vol]7.0 mg/dL7.0-18.0[facility] Urea nitrogen/Creatinine [Mass ratio]7.9 mg/mgTrinity Health System [facility] Laboratory - Hematology and Cell countson 01-72-3273Jfbookmj granulocytes/100 WBC (Bld)0.4 %0.0-0.5FElyria Memorial HospitalLeukocytes [#/volume] corrected for nucleated erythrocytes in Blood by Automated counon 92-44-5143XBD corrected for nucl RBC Auto (Bld) [#/Vol]7.7 10 3/uL4.0-11.0[facility] CenterLymphocytes Auto (Bld) [#/Vol]on 83-58-0224Xvqaezfwfxy (Bld) [#/Vol]1.7 10 3/uL1.2-3.8[facility] CenterLymphocytes/100 WBC Auto (Bld)on 74-76-0845Ojkkfwncyyn/100 WBC (Bld)22.5 %20.5-60.0[facility] CenterMCH Auto (RBC) [Entitic mass]on 34-49-7185GUY (RBC) [Entitic mass]30.9 pg26.7-34.0[facility] CenterMCHC Auto (RBC) [Mass/Vol]on 30-13-2679TGTT (RBC) [Mass/Vol]33.7 g/dL29.9-35.2FElyria Memorial HospitalMCV Auto (RBC) [Entitic vol]on 04-26-9631CSS (RBC) [Entitic vol] 91.8 fL81.0-99.0[facility] CenterMonocytes Auto (Bld) [#/Vol]on 70-91-0764Auidgqzzk (Bld) [#/Vol]0.6 10 3/uL0.3-0.8[facility] CenterMonocytes/100 WBC Auto (Bld)on 45-41-5439Tzadjsqif/100 WBC (Bld)7.8 % 1.7-12.0[facility] CenterNeutrophils Auto (Bld) [#/Vol]on 14-10-0913Bmltigluxqs (Bld) [#/Vol]5.0 10 3/uL1.4-6.5FElyria Memorial HospitalNeutrophils/100 WBC Auto (Bld)on 51-11-4225Nerkoyemvok/100 WBC (Bld)65.5 % 43.0-75.0[facility] CenterNo Panel Informationon 01-27-2024 Eosinophils # (Auto)0.2 10 3/uL0.0-0.7FElyria Memorial HospitalImmature Granulocyte # (Auto)0.03 10 3/uL0.00-0.03[facility] Platelet mean volume Auto (Bld) [Entitic vol]on 89-94-3442Yyinvuug mean volume (Bld) [Entitic vol]9.8 fL9.5-13.5FElyria Memorial HospitalPlatelets Auto (Bld) [#/Vol]on 38-51-2244Hyvbizhxu (Bld) [#/Vol]321 10 3/gD814-433UwiqsyyooTrinity Health System Twin City Medical CenterRBC Auto (Bld) [#/Vol]on 50-47-4790KFF (Bld) [#/Vol]4.75 10 6/uL4.20-5.40[facility] Osteopathic Hospitalerum or plasma anion gap determinationon 12-17-6517Gsynu gap [Moles/Vol]13.6 mmol/LFElyria Memorial HospitalXR C-SPINE 2-3 VIEWSon 48-70-5409PN C-SPINE 2-3 [address] [place] [address] Patient: MICHAEL ALTAMIRANO Exam Date: 01/15/2018DOB: 1980 Gender:F : ERUM DANIELSON Admission #: [id number] : DR GEMA THAYER . Order #: [id number] HERE TO VIEW EXAM RADIOLOGY REPORT PROCEDURE: RADIOGRAPH C- SPINE 2-3 VIEWS COMPARISON: None. INDICATIONS: Acute cervical pain radiates to bilateralarms FINDINGS: BONES: No significant spondylosis, scoliosis, fracture, or visible bony lesion. DISCSPACES: Moderate narrowing C4-5 with small endplate osteophytes. Mild narrowing C5-6.PARASPINOUS: Negative. No paraspinous abnormality is seen. OTHER: Negative. CONCLUSION: 1. Degenerative disc disease of the mid cervical spine. No comparison studies.2. No acute bone abnormality. Dictated by: Rajesh Xavier M.D. on 01/15/2018 at 21:38 Approved by: Rajesh Xavier M.D. on 01/15/2018 at 21:40NoVeterans Health AdministrationESTRADIOLon 60-20-1029Jmhfuyace14.2 pg/mLNormalUniversity Hospitals Geneva Medical CenterComment on above:Result Comment: Adult Female: Follicular phase 12.5 - 166.0 Ovulation phase 85.8 - 498.0 Luteal phase 43.8 - 211.0 Postmenopausal <6.0 - 54.7 1st trimester 215.0 - >4300.0 Girls (1-10years) 6.0 - 27.0Roche ECLIA methodology Performed By: #### ESTRADI ####[facility] [address] [place] [address] T4on 65-06-9999Yhsntckdx (T4) free 0.90 ng/dLNormal0.78-2.19The [facility]'S HospitalComment on above:Performed By: #### FT4 ####[facility] [address] [place] [address] 66-37-9236QVG0.06 mIU/mlNormalUniversity Hospitals Geneva Medical Center Comment on above:Performed By: #### TSH, FSH ####[facility] [address] [place] [address] ADULT FEMALE SEE BELOWNoVeterans Health AdministrationComment on above:Result Comment: NORMAL FEMALE FOLLICULAR PHASE 1.98 - 11.6 mIU/ml NORMAL FEMALE MID-CYCLE PEAK 5.14- 23.4 mIU/ml NORMAL FEMAL LUTEAL PHASE 1.38 - 9.56 mIU/ml POST-MENOPAUSAL FEMALES 21.5 - 131 mIU/mlPerformed By: #### TSH, FSH ####[facility] [address] [place] [address] 10-14-2017 Thyroid stimulating hormone (TSH)3.500 uIU/mLNormal0.470-4.680The [facility]'S HospitalComment on above:Performed By: #### TSH, FSH ####[facility] [address] [place], [place] [address]Zvxwnw KarenThyroid stimulating hormone (TSH)SEE BELOWNormalThNationwide Children's HospitalComment on above: Result Comment: <0.34 UIU/ml HYPERTHYROID 0.34-5.60 UIU/ml EUTHYROID >5.60 UIU/ml HYPOTHYROIDPerformed By: #### TSH, FSH ####[facility] [address] [place], [place] [address]Unksbj Evelin Vital Signs Date TimeVital SignValuePerforming YnntusqrrYekwbqnh50-83-7443 11:32-0500 Diastolic blood ghueeucw165 mm[Hg]Gabi Bobby MD Work Phone: [phone]11-05-2025 11:32-0500 Heart wgex116 /minGabi Bobby MD Work Phone: [phone]11-05-2025 11:32-0500 Systolic blood yomlbbhx086 mm[Hg]Gabi Bobby MD Work Phone: [phone]11-05-2025 11:22-0500 Body cszkiu924.1 cmGabi Bobby MD Work Phone: [phone]11-05-2025 11:22-0500 Body mass index (BMI) [Ratio]23.8 kg/m8DwnpfyGabi Bobby MD Work Phone: [phone] [place], [place] [address]70[address]11-05-2025 11:22-0500 Body .86 kgGabi Bobby MD Work Phone: [phone] [place], [place] [address]05-01-2025 11:010400 Body laqfqx578.1 cmTrinity Health System [facility] Center05-01-2025 11:010400Body mass index (BMI) [Ratio]23.1 kg/u9RgoyebupkTrinity Health System [facility] Medical Center05-01-2025 11:010400Body losdkq84.04 kgTrinity Health System [facility] Medical Center05-01-2025 11:01-0400Diastolic blood bzbiwwst548 mm[Hg][facility] 12-20-2024 11:01-0400Heart wxiq986 /[facility] 12-20-2024 11:01-0400Systolic blood kxetywni661 mm[Hg][facility]06-12-2024 11:06-0400Body lixekj605.1 cmTrinity Health [facility] 02-01-2024 11:06-0400Body mass index (BMI) [Ratio]19.1 kg/j8JtsdeqfjxTrinity Health System [facility] Center06-12-2024 11:06-0400Body ewrctn04.16 kgTrinity Health System [facility] Medical Center06-12-2024 11:06-0400Diastolic blood apzvwlvz808 mm[Hg][facility]06-12-2024 11:06-0400Heart rate81 /[facility]06-12-2024 11:06-3629StE4% (BldA) [Mass fraction]99 %[facility]06-12-2024 11:06-0400Systolic blood uikerbob196 mm[Hg][facility]12-15-2023 11:45-0500Body prdqob580.1 cmGabi Bobby Other [employer] Other 624833-01-7424 11:45-0500Body mass index (BMI) [Ratio] 18.87 kg/m9FgdfhdGabi Bobby Other [employer] Other 12-15-2023 11:45-0500Body ufaxpy87.44 kgGabi Bobby Other [employer] Other 12-15-2023 11:45-0500Diastolic blood wpfymwcq096 mm[Hg]Gabi Bobby Other [employer] Other 12-15-2023 11:45-0821UpP6% (BldA) [Mass fraction]97 % Gabi Bobby Other noPrizzm [employer] Other 532268-48-4754 11:45-0500Systolic blood friiizuf943 mm[Hg] Gabi Bobby Other [facility] [employer] Other Encounters Encounter DateEncounter TypeCare ProviderFacilityStart: 06-26-2025 End: 61-96-7835iogetzbbuaWsebfx E Braun MD Work Phone: -[facility]ertart: 06-26-2025 End: 94-85-8011Bdzxkin encounter procedureGabi Bobby MD-[facility] Work Phone: Start: 12-20-2024 End: 30-16-4740ccgcdlbrdvFpcdklodhTrinity Health [facility] Work Phone: Start: 12-20-2024 End: 52-63-9401Mlsctyx encounter procedureCritical Access Hospital Physician [facility] Work Phone: Start: 97-22-1389Uvnlvzh encounter statusDayton Osteopathic Hospitaltart: 02-01-2024 End: 64-78-2638jqpsadnkguQqmhtesgqTrinity Health [facility] Work Phone: Start: 02-01-2024 End: 87-83-8118Pcopied encounter procedureCritical Access Hospital Physician GroupSt. [facility] Work Phone: Start: 02-11-1688Hvn-patient / Non-visitCritical Access Hospital Physician Group-[facility] howsimple Work Phone: Start: 10-03-2023 End: 25-99-8981ekejzkraxrYjlivf Braun Other noPrizzm [employer] Other Start: 34-35-0544Fkdcoanlo encounterGabi BobbyPremier Health Atrium Medical Centertart: 09-05-2023 End: 97-32-2903gwrnwxhcpxZyzakr Braun Other [facility] [employer] Other Start: 92-40-0590Mzyrltkeb encounterGabi Amin [facility] ClinicStart: 09-02-2023 End: 55-28-4726updemfcsycRpppce Braun Other [employer]Kiddy Other Start: 09-41-2867Uyyvhzcdu by computer linkGabi Amin [facility] ClinicStart: 08-09-2023 End: 76-51-9616injiionbxbGyvllr Bobby Other [employer] Other Start: 86-26-6549Yeppvjpuf encounterGabi Amin [facility] ClinicStart: 08-05-2023 End: 97-31-7685gfwtzokjozExuham Bobby Other noPrizzm [employer] Other Start: 13-75-9155Lnlvgj outpatient visit 25 minutes Gabi Kary [facility] ClinicStart: 01-15-2018 End: 45-11-9005LxxvyqyxchNGYISR Delio BOBBYFacility:V0Nqghc: 10-14-2017 End: 89-80-5540RgvtzmycaoJMADMS Delio BOBBYFacility:H1 Plan of Treatment DateCare ActivityDetailAuthorStart: 58-11-8567Pnlsusp referralUniversity Hospitals Ahuja Medical Center Work Phone: MG Breast - bilateral ScreeningTrinity Health System Twin City Medical CenterPatient referralUniversity Hospitals Ahuja Medical Center Work Phone: [facility] Payers DatePayer CategoryPayerPolicy [id number] / [id number] Social History DateTypeDetailFacilityUnknown if ever smokedStockholm [employer] Other Sex Assigned At BirthSex Assigned At BandspeedPrizzm [employer] Other Start: 09-08-2023 End: 79-39-0022Hvyhgav smoking status NHISNever smoked tobacco (finding) [facility] Hospitaltart: 64-28-9198Drs Assigned At Critical Access HospitalFeClermont County Hospitaltart: 59-06-5641EmcPxisma (finding)[facility] Evaluation note 10-03-2023 Note Date & EucvIqjcYzecthut17-41-5251 Evaluation note* Encounter Date Diagnosis Assessment Notes Treatment Notes Treatment Clinical Notes Sep, Adult ADHD (ICD-10 - F90.9) [facility] Other Evaluation note 09-05-2023 Note Date & EestIrpvDvbhkbhy25-54-6821 Evaluation note* Encounter Date Diagnosis Assessment Notes Treatment Notes Treatment Clinical Notes Aug, Adult ADHD (ICD-10 - F90.9) [facility] Other Evaluation note 08-05-2023 Note Date & GhsyMgltFahaxpzf24-40-9636 Evaluation note* Encounter Date Diagnosis Assessment Notes Treatment Notes Treatment Clinical Notes Jul, Anxiety, generalized (ICD-10 - F 41.1) Pt admits to several stressors and agrees to restart previous med for anxiety. Jul,Essential (primary) hypertension (ICD-10 - I10)Check bp once daily. Reports bradycardia w toprol 25mg in past. Trial of amlodipine - f/u 1 month Jul,cquired hypothyroidism (ICD-10 - E03.9)History of thyroid issues. Discussed possible link to her tachycardia today. check labs to r/o hyperthyroid Jul,Tachycardia (ICD-10 - R00.0)as above Jul,Tension headache (ICD-10 - G44.209)requests refill for chronic problem. [employer] Other Evaluation note Note Date & TypeNoteFacilityEvaluation noteNo InformationNorth Brand a T[employer] GmbH Other Evaluation note Note Date & TypeNoteFacilityEvaluation noteNo assessment information available [facility] Work Phone: Evaluation note Note Date & TypeNoteFacilityEvaluation note* Diagnosis Onset Date Resolution Status Admit Date Acquired hypothyroidism acuteMay 2024 10:54amColon cancer screeningacuteMay 2024 10:54am Essential (primary) hypertensionacuteMay 2024 10:54amScreening mammogram for breast canceracuteMay 2024 10:54am [facility] Work Phone: Evaluation note Note Date & TypeNoteFacilityEvaluation note* Diagnosis Onset Date Resolution Status Admit Date Acquired hypothyroidism acuteNovember 2024 11:22am [facility] Work Phone: History general Narrative - Reported Note Date & TypeNoteFacilityHistory general Narrative - Reported* Type Description Date Medical History Anxiety, generalized Surgical HistoryHyst - 3 surgeries [facility] - sepsis dev after [facility],Hospitalization Historysee above surgical history [facility] [employer] [place] Other Hospital Discharge instructions Note Date & TypeNoteFacilityHospital Discharge instructionsAmbulatory Orders* Referral to Gastroenterology Time Frame: 12/20/24, Location: None Selected [facility] Work Phone: Reason for referral (narrative) Note Date & TypeNoteFacilityReason for referral (narrative)No reason for referral information availableUniversity Hospitals [facility] Work Phone: Summary Purpose Family History Relationship Condition Age at Onset Recorded Date/T deyanira father Unknown Advance Directives Advance Directive Response Recorded Date/ Time Advance Directives No January 25 11:08am Advance Directive Response Recorded Date/ Time Advance Directives No January 25 10:08am Chief Complaint and Reason for Visit Chief Complaint wellness Chief Complaint Admit Date med refills/check up December 20, 2024 10:54 am Reason for Visit Admit Date Acquired hypothyroidism December 20, 2024 10 :54am Colon cancer screening December 20, 2024 10: 54am Essential (primary) hypertension December 10:54am Screening mammogram for breast cancer Ma ana 2024 10:54am Chief Complaint Admit Date discuss multiple concerns + refill meds June 26, 2025 11:22am Reason for Visit Admit Date Acquired hypothyroidism June 26 11:22am Additional Source Comments INFORMATION SOURCE (unrecogn ized section and content) DATE CREATED AUTHOR 02/08/2018 [facility] REASON FOR VISIT (unrecogniz ed section and content) Check uplabsReschedule Appoi ntment RequestCancel Appointment Requestrefillrefill Care Teams (unrecognized sec tion and content) Team Status: Active Member Role Status Dates Gabi Bobby MD Primary Care Provider Active Team Status: Inactive Member Role Status Dates Gabi Bobby MD Primary Care Provide r, Attending Provider Active Start: December 20, 2024 End: December 20, 2024 Team Status: Active Member Role Status Dates Gabi Bobby MD Primary Care Provide r, Attending Provider Active Start: January 27, 2024 Team Status: Inactive Member Role Status Dates Gabi Bobby MD Primary Care Provide r, Attending Provider Active Start: February 01, 2024 End: February 01, 2024 Team Status: Active Member Role/Relationship Status Dates Gabi Bobby MD Primary Care Provider Active Team Status: Inactive Member Role/Relationship Status Dates Gabi Bobby MD Primary Care Provider Active Start: June 26, 2025 End: June 26, 2025Gabi Bobby MDAttending ProviderActiveStart: June 26, 2025 End: June 26, 2025 Goals (unrecognized section and content) Goals may be documented in a n alternate section FOR RECORDS PERTAINING TO PATIENTS WHO ARE OR HAVE BEEN ENROLLED IN A CHEMICAL DEPENDENCY/SUBSTANCEABUSE PROGRAM, SOME INFORMATION MAY BE OMITTED. This clinical summary was aggregated from multiple sources. Caution should be exercised in using it in the provision of clinical care. This summary normalizes information from multiple sources, and as a consequence, information in this document may materially change the coding, format and clinical context of patient data. In addition, data may be omitted in some cases. CLINICAL DECISIONS SHOULD BE BASED ON THE PRIMARY CLINICAL RECORDS. [employer] [facility]. provides no warranty or guarantee of the accuracy or completeness of information in this document.
[2025-07-08 12:42] LABS: Thyroid Stimulating Hormone 0.219 uIU/mL (0.358-3.740)
== END 2025-07-08 11:26 | disposition home or self-care (01) ==
LOC: LAB 11:26
PROVIDERS: PCP Family Medicine; Visit Provider Family Medicine
DX: E03.9 Hypothyroidism, unspecified (principal)
CPT/HCPCS: 36415; 84439; 84443